=== PATIENT | female | born 1965 | race Caucasian/White ===

== ENCOUNTER 2020-06-01 23:00 | Emergency (ER) | payer MEDICARE, BC ==
[~2020-06-01] VITALS: Ht 172.7 cm; Wt 127.0 kg
[2020-06-01] MEDS ORDERED: KETOROLAC TROMETHAMINE INJ 60 MG/2 ML VIAL IM ONE ×2 (23:23→23:30)
[2020-06-01] MEDS ORDERED: TDAP [DIPH/PERTUSSIS/TET] 0.5 ML VIAL IM ONE ×2 (23:23→23:30)
--- NOTE | 2020-06-02 00:05 | NUR ---
PT WAS TAKEN FOR CT
--- NOTE | 2020-06-02 00:25 | NUR ---
PT RETURNED FROM CT
--- NOTE | 2020-06-02 01:11 | NUR ---
PATIENT CALLED FOR HER RIDE.
--- NOTE | 2020-06-02 01:24 | NUR ---
Patient discharged to home in stable condition. Written and verbal after care instructions given. Patient verbalizes understanding of instruction.
--- NOTE | 2020-06-02 01:24 | NUR ---
PATIENT IS PICKED UP BY HER RIDE TO RETURN TO FACILITY.
[2020-06-02 01:27] VITALS: BP 129/76
== END 2020-06-02 01:31 | disposition home or self-care (01) ==
LOC: ER 23:06
DX: S50.311A Abrasion of right elbow, initial encounter (principal); M25.561 Pain in right knee; M25.562 Pain in left knee; Z88.6 Allergy status to analgesic agent; Z88.8 Allergy status to other drugs, medicaments and biological substances; W10.8XXA Fall (on) (from) other stairs and steps, initial encounter; Y93.89 Activity, other specified; Y92.89 Other specified places as the place of occurrence of the external cause; Y99.8 Other external cause status
CPT/HCPCS: 73080; 73564 ×2; 74176; 90471; 90715; 96372; 99284; J1885

== ENCOUNTER 2020-06-22 18:13 | Inpatient (IN) | payer MEDICARE, BC ==
[~2020-06-22] VITALS: Ht 172.7 cm; Wt 129.3 kg
--- NOTE | 2020-06-22 18:13 | NUR ---
PT BIB SELF C/O RLQ ABDOMINAL PAIN AND DIARRHEA. PT IS AAOX4, NOT IN RESPIRATORY DISTRESS, HOOKED TO CHOP SAW OPERATOR, KEPT RESTED AND COMFORTABLE. WILL CONTINUE TO MONITOR.
--- NOTE | 2020-06-22 18:25 | NUR ---
BILL BUCHANAN AT BEDSIDE FOR EVAL.
[2020-06-22] MEDS ORDERED: KETOROLAC TROMETHAMINE INJ 30 MG/ML VIAL IV ONE (18:30)
[2020-06-22] MEDS ORDERED: ONDANSETRON HCL/PF 4 MG/2 ML VIAL IVP ONE (18:30)
[2020-06-22] MEDS ORDERED: IV NS 0.9% 1,000 ML BAG IV ONE (18:30)
[2020-06-22] MEDS ORDERED: ONDANSETRON HCL/PF 4 MG/2 ML VIAL ONE ×2 (18:42→21:56)
[2020-06-22] MEDS ORDERED: KETOROLAC TROMETHAMINE INJ 30 MG/ML VIAL ONE (18:42)
--- NOTE | 2020-06-22 18:45 | NUR ---
IV LINE ESTABLISHED BLOOD DRAWN AND SENT TO LAB.
[2020-06-22 19:21] LABS: BASOPHILS % (AUTO) 0.4 % (0.0-2.0); EOSINOPHILS % (AUTO) 8.3 % (0.0-6.0); HEMATOCRIT 34 % (33-45); HEMOGLOBIN 11.3 g/dL (11.5-14.8); LYMPHOCYTES # (AUTO) 3.5 /CMM (0.8-4.8); LYMPHOCYTES % (AUTO) 33.4 % (20.0-44.0); MEAN CORPUSCULAR HGB CONC 33 g/dl (31.0-36.0); MEAN CORPUSCULAR VOLUME 89 fL (82-100); MONOCYTES # (AUTO) 1.1 /CMM (0.1-1.30); MONOCYTES % (AUTO) 10.5 % (2.0-12.0); NEUTROPHILS % (AUTO) 47.4 % (43.0-81.0); PLATELET COUNT (AUTO) 243 /CMM (150-450); RED BLOOD CELL COUNT(AUTO) 3.87 MIL/uL (4.0-5.2); WHITE BLOOD COUNT (AUTO) 10.5 K/uL (4.3-11.0)
--- NOTE | 2020-06-22 19:40 | NUR ---
PA at the bedside.
[2020-06-22] MEDS ORDERED: MORPHINE SULFATE INJ 4 MG/ML DISP.SYRIN ONE (19:48)
--- NOTE | 2020-06-22 19:59 | NUR ---
US at the bedside.
[2020-06-22] MEDS ORDERED: MORPHINE SULFATE INJ 2 MG/ML DISP.SYRIN IV ONE ×2 (20:00→22:00)
[2020-06-22 20:06] LABS: ALBUMIN 3.1 g/dL (3.4-5.0); BILIRUBIN,DIRECT 0.1 mg/dL (0.0-0.2); BILIRUBIN,TOTAL 0.2 mg/dL (0.2-1.0); CREATININE 0.7 mg/dL (0.6-1.3); POTASSIUM 4.2 mmol/L (3.5-5.1); TOTAL PROTEIN, SERUM 6.2 g/dL (6.4-8.2)
[2020-06-22 20:21] LABS: BILIRUBIN,URINE NEGATIVE (NEGATIVE); COLOR,URINE YELLOW (YELLOW); LEUKOCYTE ESTERASE ,URINE NEGATIVE (NEGATIVE); NITRITE, URINE NEGATIVE (NEGATIVE); PH,URINE 6.5 (5.0-8.0); PROTEIN,URINE NEGATIVE (NEGATIVE); UGLUCOSE NEGATIVE (NEGATIVE); UROBILINOGEN,URINE 0.2 EU/dL (0.2)
[2020-06-22 20:33] LABS: BACTERIA,URINE None seen /HPF (None Seen); WBC,URINE 0-2 /HPF (0-3)
[2020-06-22 20:34] LABS: SQUAMOUS EPITHELIAL CELL,UR 0-2 /HPF (None Seen)
--- NOTE | 2020-06-22 20:39 | NUR ---
PT TO CT VIA ALEXANDRA
--- NOTE | 2020-06-22 20:50 | NUR ---
Pt is back from CT
--- NOTE | 2020-06-22 20:50 | NUR ---
BACK FROM CT
--- NOTE | 2020-06-22 21:00 | NUR ---
Gave ice pack per Pt' requested.
[2020-06-22] MEDS ORDERED: PIPERACILLIN /TAZOBACTAM 3.375 G in IV D5W 50 ML IV ONE (21:30)
--- NOTE | 2020-06-22 21:40 | NUR ---
Send covid rapid to lab
[2020-06-22] MEDS ORDERED: PIPERACILLIN /TAZOBACTAM 3.375 G VIAL IV ONE (21:48)
[2020-06-22] MEDS ORDERED: ONDANSETRON HCL/PF 4 MG/2 ML VIAL IV ONE (22:00)
--- NOTE | 2020-06-22 22:50 | NUR ---
Gave report to BETITO Ferguson for BRANDEN
--- NOTE | 2020-06-22 22:55 | NUR ---
Transfered Pt to room 109 with EMT.
[2020-06-22 23:05] VITALS: BP 107/55
--- NOTE | 2020-06-22 23:05 | NUR ---
ADMITTING NOTES REC'D PT FROM ED, REPORT FROM OLGA CISSE. PT IS A/O X4. RAC #18 IV SITE FLUSHED. IVF STARTED ORDERED. PT SAYS SHE USES CPAP AT NIGHT. WILL F/U. MED RECON NOT DONE. WILL FOLLOW UP. PT IS ON MED SURG MONITORING. SKIN INTACT. A FEW SCABS NOTED. SAFETY MEASURES IN PLACE. HOB ELEVATED. SIDE RAILS UP X2 BED LOCKED IN LOWEST POSITION. ENDORSED TO AM NURSE FOR CONTINUATION OF CARE.
[2020-06-22] MEDS ORDERED: Z GUARD REMEDY 2 OZ OINT TP PRN (23:30)
[2020-06-22] MEDS ORDERED: HYDROCODONE/APAP 5/325MG TABLET PO PRN (23:30)
[2020-06-22] MEDS ORDERED: MORPHINE SULFATE INJ 2 MG/ML DISP.SYRIN IV PRN (23:30)
[2020-06-22] MEDS ORDERED: MAGNESIUM HYDROXIDE 30 ML UDC PO PRN (23:30)
[2020-06-22] MEDS ORDERED: MAG HYDROX/AL HYDROX/SIMETH 30 ML UDC PO PRN (23:30)
[2020-06-22] MEDS ORDERED: IV NS 0.9% 1,000 ML IV PRN (23:30)
[2020-06-22] MEDS ORDERED: ONDANSETRON HCL/PF 4 MG/2 ML VIAL IVP PRN (23:30)
[2020-06-22] MEDS ORDERED: ACETAMINOPHEN 325 MG TABLET PO PRN (23:30)
--- NOTE | 2020-06-23 01:30 | NUR ---
RN NOTE NOTIFIED [employer] SPECIALIST MELY VELASCO REGARDING PT CPAP. AT THIS TIME. NOC CPAP OF 10, UNTIL PULMO EVAL TOMORROW
--- NOTE | 2020-06-23 01:45 | NUR ---
PLACED PT ON NOC CPAP 10, FIO2 28% RN GAGE NOTIFIED. NO RESPIRATORY DISTRESS NOTED AT THIS TIME. WILL CONTINUE TO MONITOR T/O SHIFT.
--- NOTE | 2020-06-23 02:00 | NUR ---
RN NOTE PT ON CPAP FIO2 28% SETTING 10
[2020-06-23] MEDS ORDERED: ASPI-992 PO (02:06)
[2020-06-23] MEDS ORDERED: BIOT5TAB PO (02:06)
[2020-06-23] MEDS ORDERED: CALC-1143 PO (02:06)
[2020-06-23] MEDS ORDERED: DULO60CA45 PO (02:47)
[2020-06-23] MEDS ORDERED: OMEP40CA13 PO (02:47)
[2020-06-23] MEDS ORDERED: MELO-107 PO (02:47)
[2020-06-23] MEDS ORDERED: CRAN500T3 PO (02:47)
[2020-06-23] MEDS ORDERED: PROP10TA10 PO (02:47)
[2020-06-23] MEDS ORDERED: ROSU40TA PO (02:47)
[2020-06-23] MEDS ORDERED: [UNRECOGNIZED DRUG - CODE] PO (02:47)
[2020-06-23] MEDS ORDERED: MAGN400T8 PO (02:47)
[2020-06-23] MEDS ORDERED: GABA-532 PO (02:47)
[2020-06-23] MEDS ORDERED: POTASSIUM (02:47)
[2020-06-23] MEDS ORDERED: LEVO50TA8 PO (02:47)
[2020-06-23] MEDS ORDERED: CHOL125D PO (02:47)
[2020-06-23] MEDS ORDERED: GLUC100017 PO (02:47)
[2020-06-23] MEDS ORDERED: VENTOLIN (02:47)
[2020-06-23] MEDS ORDERED: DOCU100C36 PO (02:47)
[2020-06-23] MEDS ORDERED: HYDR-3895 PO (02:47)
[2020-06-23] MEDS ORDERED: TRAM50TA2 PO (02:47)
[2020-06-23] MEDS ORDERED: DIVA500T54 PO (02:47)
[2020-06-23] MEDS ORDERED: SIME125C PO (02:47)
[2020-06-23] MEDS ORDERED: ROSU20TA2 PO (02:47)
[2020-06-23] MEDS ORDERED: [UNRECOGNIZED DRUG - CODE] PO (02:47)
[2020-06-23] MEDS ORDERED: TRAZ-182 PO (02:47)
[2020-06-23] MEDS ORDERED: MELA3TAB41 PO (02:47)
[2020-06-23] MEDS ORDERED: ZINC50TA65 PO (02:47)
[2020-06-23] MEDS ORDERED: TURM500C9 PO (02:47)
[2020-06-23] MEDS ORDERED: IV NS 0.9% 1,000 ML IV PRN (03:00)
[2020-06-23] MEDS ORDERED: TRAZODONE 50 MG TABLET PO PRN (03:30)
[2020-06-23 04:00] VITALS: BP 93/55
[2020-06-23] MEDS ORDERED: PIPERACILLIN /TAZOBACTAM 3.375 G in IV D5W 50 ML IV SCH ×2 (04:00→12:00)
--- NOTE | 2020-06-23 04:00 | NUR ---
TAKEN OFF BIPAP PER PT REQUEST. BETITO ALMONTE AWARE. NO RESPIRATORY DISTRESS NOTED AT THIS TIME. WILL CONTINUE TO MONITOR PT T/O SHIFT.
--- NOTE | 2020-06-23 04:05 | NUR ---
RN NOTE PT REQUESTS TO BE TAKEN OFF CPAP AT THIS TIME. SAYS SHE WILL BE AWAKE.
[2020-06-23] MEDS ORDERED: PIPERACILLIN /TAZOBACTAM 3.375 G VIAL IV ONE (04:38)
[2020-06-23] MEDS: LACTAID 1 TAB TABLET PO SCH ×3 (05:00→12:36)
[2020-06-23] MEDS: hydrOXYzine PAMOATE 25 MG CAPSULE PO SCH ×2 (05:50→12:36)
[2020-06-23 06:05] LABS: BASOPHILS % (AUTO) 0.5 % (0.0-2.0); EOSINOPHILS % (AUTO) 8.6 % (0.0-6.0); HEMATOCRIT 32 % (33-45); HEMOGLOBIN 10.3 g/dL (11.5-14.8); LYMPHOCYTES # (AUTO) 2.2 /CMM (0.8-4.8); LYMPHOCYTES % (AUTO) 30.2 % (20.0-44.0); MEAN CORPUSCULAR HGB CONC 32 g/dl (31.0-36.0); MEAN CORPUSCULAR VOLUME 91 fL (82-100); MONOCYTES # (AUTO) 0.9 /CMM (0.1-1.30); MONOCYTES % (AUTO) 11.6 % (2.0-12.0); NEUTROPHILS # (AUTO) 3.6 /CMM (1.8-8.9); NEUTROPHILS % (AUTO) 49.1 % (43.0-81.0); PLATELET COUNT (AUTO) 198 /CMM (150-450); RED BLOOD CELL COUNT(AUTO) 3.54 MIL/uL (4.0-5.2); WHITE BLOOD COUNT (AUTO) 7.4 K/uL (4.3-11.0)
[2020-06-23 06:50] LABS: THYROID STIMULATING HORMONE 1.59 uIU/mL (0.358-3.74)
--- NOTE | 2020-06-23 06:50 | NUR ---
RN CLOSING NOTES PT REMAINS ON ROOM AIR NO SOB OR DISTRESS NOTED. ALL NEEDS ATTENDED. PT REMAINS AFEBRILE. ALL SAFETY MEASURES IN PLACE. HOB ELEVATED SIDE RAILS UP X2 BED LOCKED IN LOWEST POSITION WITH BED ALARM ON. CALL LIGHT WITHIN REACH. WILL ENDORSE TO AM NURSE FOR CONTINUATION OF CARE.
[2020-06-23 07:03] LABS: CALCIUM, SERUM 7.9 mg/dL (8.5-10.1); CREATININE 0.8 mg/dL (0.6-1.3); MAGNESIUM 2.1 mg/dL (1.8-2.4); PHOSPHORUS 5.2 mg/dL (2.5-4.9); POTASSIUM 4.1 mmol/L (3.5-5.1)
--- NOTE | 2020-06-23 07:30 | NUR ---
RN OPENING NOTES PT RECEIVED IN BED RESTING IN SEMI-FOWLERS POSITION. PATIENT ON ROOM AIR WITH NO SOB OR DISTRESS NOTED. SAFETY PRECAUTIONS IMPLEMENTED, HOB ELEVATED, SIDE RAILS UP X2, BED LOCKED IN LOWEST POSITION, BED ALARM ON, CALL LIGHT WITHIN REACH. WILL CONTINUE TO MONITOR AND PROVIDE CARE THROUGHOUT SHIFT.
[2020-06-23 08:00] VITALS: BP 104/68
[2020-06-23] MEDS ORDERED: Medication Not On Formulary EA (Omeprazole 1 CAP) PO SCH (09:00)
[2020-06-23] MEDS ORDERED: Medication Not On Formulary EA (Turmeric Root Extract (Turmeric) 500 MG) PO SCH (09:00)
[2020-06-23] MEDS ORDERED: CRANBERRY EXT/C/L. SPOROGENES 405 MG/TAB TABLET PO SCH (09:00)
[2020-06-23] MEDS: MELOXICAM 7.5 MG TABLET PO SCH ×2 (09:00→09:07)
[2020-06-23] MEDS ORDERED: GLUCOSAMINE SULFATE 1500 MG PO SCH (09:00)
[2020-06-23] MEDS ORDERED: Medication Not On Formulary EA (Biotin 5 MG) PO SCH (09:00)
[2020-06-23] MEDS: PANTOPRAZOLE 40 MG TABLET.DR PO SCH (09:03)
[2020-06-23] MEDS: DOCUSATE SODIUM 100 MG CAPSULE PO SCH (09:04)
[2020-06-23] MEDS: LEVOTHYROXINE SODIUM 50 MCG TABLET PO SCH (09:04)
[2020-06-23] MEDS: DULOXETINE HCL 30 MG CAPSULE.DR PO SCH (09:04)
[2020-06-23] MEDS: DIVALPROEX SODIUM 500 MG TABLET.DR PO SCH ×2 (09:05→17:17)
[2020-06-23] MEDS: PROPRANOLOL HCL 10 MG TABLET PO SCH ×2 (09:06→17:16)
[2020-06-23] MEDS: CALCIUM CARBONATE (1250) 500 MG TABLET PO SCH (09:06)
[2020-06-23] MEDS: ZINC SULFATE 220 MG CAPSULE PO SCH ×2 (09:06→17:16)
[2020-06-23] MEDS: GABAPENTIN 100 MG CAPSULE PO SCH ×2 (09:06→12:36)
[2020-06-23] MEDS: ASCORBIC ACID 500 MG TABLET PO SCH ×2 (09:06→17:17)
[2020-06-23] MEDS: SIMETHICONE 80 MG TAB.CHEW PO SCH ×2 (09:12→17:19)
[2020-06-23] MEDS: PIPERACILLIN /TAZOBACTAM 3.375 G in IV D5W 100 ML IV SCH ×2 (10:57→19:17)
[2020-06-23] MEDS ORDERED: MORPHINE SULFATE INJ 2 MG/ML DISP.SYRIN IV PRN (11:30)
[2020-06-23 12:19] LABS: ABG BASE EXCESS 0.7 mmol/L; ABG OXYGEN SATURATION 90.6 % (92.0-98.5); ABG PCO2 37.6 mmHg (35.0-45.0); ABG PH 7.436 (7.350-7.450); ABG PO2 59.5 mmHg (75.0-100.0); AaDO2 45.2 mmHg; COHb 1.8 % (0.5-1.5); MetHb 0.3 % (0.0-1.5); O2Hb 88.7 % (94.0-97.0); SITE, ABG Right Radial; VENT MODE, BG ROOM AIR
[2020-06-23] MEDS ORDERED: VITA1TAB56 PO (13:51)
[2020-06-23] MEDS ORDERED: VIT1CAPS44 PO (13:51)
[2020-06-23] MEDS ORDERED: ALBU18HF2 IH (13:51)
[2020-06-23 16:00] VITALS: BP 116/67
[2020-06-23] MEDS ORDERED: GABAPENTIN 100 MG CAPSULE PO PRN (16:39)
[2020-06-23] MEDS ORDERED: LACTAID 1 TAB TABLET PO PRN (16:40)
[2020-06-23] MEDS ORDERED: hydrOXYzine PAMOATE 25 MG CAPSULE PO PRN (17:00)
[2020-06-23] MEDS: TRAMADOL HCL 50 MG TABLET PO PRN (17:17)
--- NOTE | 2020-06-23 19:17 | NUR ---
RN CLOSING NOTES PT IN BED RESTING IN SEMI-FOWLERS POSITION. PATIENT ON O2 THERAPY VIA NC AT 1 LPM WITH NO SOB OR DISTRESS NOTED. SAFETY PRECAUTIONS IMPLEMENTED, HOB ELEVATED, SIDE RAILS UP X2, BED LOCKED IN LOWEST POSITION, BED ALARM ON, CALL LIGHT WITHIN REACH. WILL ENDORSE CARE TO UPCOMING SHIFT.
--- NOTE | 2020-06-23 20:03 | NUR ---
RN NOTE PATIENT AWAKE IN BED. ALERT AND ORIENTED X4. ABLE TO MAKE NEEDS KNOWN. ON O2 1L VIA NASAL CANNULA. NO S/S OF RESPIRATORY DISTRESS. IV ACCESS ON RIGHT AC #18 RUNNING NS @ 50ML/HR. NO S/S OF INFILTRATION. DENIES ANY PAIN AT THIS TIME. BED LOCKED AND IN LOWEST POSITION. SAFETY MEASURES IMPLEMENTED. CALL LIGHT WITHIN REACH.
[2020-06-23 22:00] VITALS: BP 141/70
[2020-06-23] MEDS ORDERED: MAGNESIUM OXIDE 400 MG TABLET PO SCH (22:00)
[2020-06-23] MEDS ORDERED: ATORVASTATIN 40 MG TABLET PO SCH (22:00)
[2020-06-23] MEDS ORDERED: ASPIRIN 325 MG TABLET PO SCH (22:00)
[2020-06-24] MEDS: PIPERACILLIN /TAZOBACTAM 3.375 G in IV D5W 100 ML IV SCH ×2 (02:22→10:18)
[2020-06-24 04:00] VITALS: BP 125/63
--- NOTE | 2020-06-24 06:54 | NUR ---
RN NOTE PATIENT ALERT AND ORIENTED X4. ON O2 1L VIA NASAL CANNULA. NO S/S OF RESPIRATORY DISTRESS. IV ACCESS ON RIGHT AC #18 RUNNING NS @ 50ML/HR. NO S/S OF INFILTRATION. DENIES ANY PAIN AT THIS TIME. NO SIGNIFICANT CHANGES DURING THIS SHIFT. ASSISTED TO BATHROOM AND VOIDED X6. BED LOCKED AND IN LOWEST POSITION. SAFETY MEASURES IMPLEMENTED. CALL LIGHT WITHIN REACH. WILL CONTINUE TO MONITOR.
[2020-06-24 06:58] LABS: BASOPHILS % (AUTO) 0.6 % (0.0-2.0); EOSINOPHILS % (AUTO) 8.6 % (0.0-6.0); HEMATOCRIT 32 % (33-45); HEMOGLOBIN 10.5 g/dL (11.5-14.8); LYMPHOCYTES # (AUTO) 2.7 /CMM (0.8-4.8); LYMPHOCYTES % (AUTO) 35.9 % (20.0-44.0); MEAN CORPUSCULAR HGB CONC 33 g/dl (31.0-36.0); MEAN CORPUSCULAR VOLUME 90 fL (82-100); MONOCYTES # (AUTO) 0.8 /CMM (0.1-1.30); MONOCYTES % (AUTO) 10.2 % (2.0-12.0); NEUTROPHILS # (AUTO) 3.3 /CMM (1.8-8.9); NEUTROPHILS % (AUTO) 44.7 % (43.0-81.0); PLATELET COUNT (AUTO) 195 /CMM (150-450); RED BLOOD CELL COUNT(AUTO) 3.55 MIL/uL (4.0-5.2); WHITE BLOOD COUNT (AUTO) 7.5 K/uL (4.3-11.0)
--- NOTE | 2020-06-24 07:29 | NUR ---
RN OPENING NOTES PT RECEIVED IN BED RESTING IN SEMI-FOWLERS POSITION. PATIENT ON ROOM AIR WITH NO SOB OR DISTRESS NOTED. SAFETY PRECAUTIONS IMPLEMENTED, HOB ELEVATED, SIDE RAILS UP X2, BED LOCKED IN LOWEST POSITION, BED ALARM ON, CALL LIGHT WITHIN REACH. WILL CONTINUE TO MONITOR
[2020-06-24] MEDS: LEVOTHYROXINE SODIUM 50 MCG TABLET PO SCH (07:36)
[2020-06-24] MEDS: PANTOPRAZOLE 40 MG TABLET.DR PO SCH (07:36)
[2020-06-24] MEDS: TRAMADOL HCL 50 MG TABLET PO PRN (07:36)
[2020-06-24 07:40] LABS: CALCIUM, SERUM 8.1 mg/dL (8.5-10.1); CREATININE 0.6 mg/dL (0.6-1.3); POTASSIUM 4.3 mmol/L (3.5-5.1)
[2020-06-24] MEDS ORDERED: VITAMIN B COMP W-C 1 TAB TABLET PO SCH (09:00)
[2020-06-24] MEDS: MELOXICAM 7.5 MG TABLET PO SCH ×2 (09:00→09:22)
[2020-06-24] MEDS: SIMETHICONE 80 MG TAB.CHEW PO SCH (09:21)
[2020-06-24] MEDS: DULOXETINE HCL 30 MG CAPSULE.DR PO SCH (09:22)
[2020-06-24] MEDS: CALCIUM CARBONATE (1250) 500 MG TABLET PO SCH (09:22)
[2020-06-24] MEDS: ASCORBIC ACID 500 MG TABLET PO SCH (09:22)
[2020-06-24] MEDS: DIVALPROEX SODIUM 500 MG TABLET.DR PO SCH (09:22)
[2020-06-24] MEDS: DOCUSATE SODIUM 100 MG CAPSULE PO SCH (09:22)
[2020-06-24] MEDS: ZINC SULFATE 220 MG CAPSULE PO SCH (09:22)
[2020-06-24] MEDS: PROPRANOLOL HCL 10 MG TABLET PO SCH (09:23)
[2020-06-24 10:00] VITALS: BP 116/75
[2020-06-24] MEDS ORDERED: LORAZEPAM INJ 2 MG/ML VIAL IV PRN (13:30)
--- NOTE | 2020-06-24 14:55 | NUR ---
PATIENT WITH POOR VENOUS IV ACCESS TRIED BUT UNSUCCESSFUL ,AWAITS MIDLINE PER MD.
[2020-06-24] MEDS ORDERED: DIVALPROEX SODIUM 500 MG TABLET.DR PO SCH (17:00)
--- NOTE | 2020-06-24 19:30 | NUR ---
RN NOTE RECEIVED PATIENT IN BED AWAKE AND ALERT X4. NO SOB OR ANY DISTRESS. DENIES ANY PAIN. PER DAY SHIFT ENDORSEMENT, PATIENT WANTS TO LEAVE AMA. NO IV ACCESS AT THIS TIME. ALL NEEDS ANTICIPATED. SAFETY MEASURES IMPLEMENTED. PATIENT IN BED COMFORTABLY.
--- NOTE | 2020-06-24 19:42 | NUR ---
PATIENT LEFT AMA AT THIS TIME ACCOMPANIED BY FRIEND LILIA. NO S/S OF DISTRESS. DENIED ANY PAIN. ALL BELONGINGS TAKEN WITH PATIENT. AMA FORM SIGNED. BELONGINGS LIST SIGNED.
== END 2020-06-24 19:45 | disposition left against medical advice (07) | DRG 394 ==
LOC: ER 18:15 → MEDSG1 22:35
PROVIDERS: ADMIT Registered Nurse; ATTEND Internal Medicine
DX: K37 Unspecified appendicitis (principal); Z68.41 Body mass index [BMI] 40.0-44.9, adult; E66.2 Morbid (severe) obesity with alveolar hypoventilation; K52.9 Noninfective gastroenteritis and colitis, unspecified; H35.30 Unspecified macular degeneration; G89.4 Chronic pain syndrome; Z86.73 Personal history of transient ischemic attack (TIA), and cerebral infarction without residual deficits; E03.9 Hypothyroidism, unspecified; G40.909 Epilepsy, unspecified, not intractable, without status epilepticus; Z20.822 Contact with and (suspected) exposure to COVID-19; M19.90 Unspecified osteoarthritis, unspecified site; M70.72 Other bursitis of hip, left hip; M70.71 Other bursitis of hip, right hip; F31.9 Bipolar disorder, unspecified; F60.3 Borderline personality disorder; I87.2 Venous insufficiency (chronic) (peripheral); Z90.49 Acquired absence of other specified parts of digestive tract; Z85.820 Personal history of malignant melanoma of skin; Z98.890 Other specified postprocedural states; Z88.5 Allergy status to narcotic agent; Z88.8 Allergy status to other drugs, medicaments and biological substances; Z91.018 Allergy to other foods; Z91.048 Other nonmedicinal substance allergy status; Z99.89 Dependence on other enabling machines and devices; R25.1 Tremor, unspecified; Z72.0 Tobacco use; F39 Unspecified mood [affective] disorder; K44.9 Diaphragmatic hernia without obstruction or gangrene; K40.90 Unilateral inguinal hernia, without obstruction or gangrene, not specified as recurrent; F41.9 Anxiety disorder, unspecified; D64.9 Anemia, unspecified; K57.90 Diverticulosis of intestine, part unspecified, without perforation or abscess without bleeding; N99.3 Prolapse of vaginal vault after hysterectomy; M48.061 Spinal stenosis, lumbar region without neurogenic claudication
CPT/HCPCS: 36415; 36600; 71045-TC; 80048-TC; 80061-TC; 80076-TC; 80164-TC; 81001; 82803-TC; 83690-TC; 83735-TC; 84100-TC; 84443-TC; 85025-TC; 87040-TC; 87081-TC; 93307-TC; 93970-TC; G0378; J1885; J2270; J2405; J2543; J7030; J7060; Q0177